=== PATIENT | male | born 2005 | race Caucasian/White ===

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

== ENCOUNTER 2024-03-13 16:43 | Emergency (ER) | payer OTHER ==
[2024-03-13] VITALS (8 sets, daily range): BP systolic 108–118; BP diastolic 45–75
[~2024-03-13] VITALS: Ht 188 cm; Wt 101.8 kg
[2024-03-13] MEDS ORDERED: ONDANSETRON HCl 4 MG/2 ML SDV IV STA (17:26)
[2024-03-13] MEDS ORDERED: SODIUM CHLORIDE 0.9% 1,000 ML IV ONE (17:30)
[2024-03-13 17:43] LABS: BASO% 0.4 % (0-3); EOS% 1.4 % (0-8); HEMATOCRIT 43.6 % (39.0-50.0); HEMOGLOBIN 14.7 g/dl (14.0-18.0); IMMATURE GRANULOCYTES 0.1 % (0.0-5.0); LYMPH% 17.9 % (15-41); MEAN CELL VOLUME 86.9 fL CALC (80.0-100.0); MEAN CORPUSCULAR HGB 29.3 pG CALC (26.0-32.0); MEAN CORPUSCULAR HGB CONC 33.7 g/dL CAL (32.0-36.0); MONO% 7.8 % (2-13); NEUT# 6.76 thou/uL (1.82-7.42); NEUT% 72.4 % (42-76); RED BLOOD COUNT 5.02 mill/uL (4.70-6.10); RED CELL DISTRI WIDTH 12.9 % (11.5-15.5)
[2024-03-13 17:55] LABS: ALBUMIN 5.2 g/dL (3.2-5.0); POTASSIUM 3.7 mmol/l (3.5-5.1); TOTAL PROTEIN 8.9 g/dL (6.3-8.2)
[2024-03-13 17:58] LABS: BILIRUBIN, TOTAL 0.7 mg/dL (0.2-1.3)
[2024-03-13] MEDS ORDERED: ZOFRAN4 MG/TAB PO (18:14)
== END 2024-03-13 18:48 | disposition home or self-care (01) | DRG 923 ==
LOC: ED 16:43
PROVIDERS: Family Medicine
DX: T67.5XXA Heat exhaustion, unspecified, initial encounter (principal); R11.2 Nausea with vomiting, unspecified; J45.909 Unspecified asthma, uncomplicated; X30.XXXA Exposure to excessive natural heat, initial encounter